=== PATIENT | female | born 1965 | race Caucasian/White ===

== ENCOUNTER → 2017-04-03 | Outpatient (CLI) | payer BC ==
[2016-02-22 15:14] VITALS: BP 154/83
[~2017-04-03] MED LIST: NS 100 ML IV 100 ML IV ONE
[2017-04-03 09:03] LABS: CREATININE 0.73 mg/dL (0.55-1.02)
--- NOTE | 2017-04-03 10:07 | CT ---
HISTORY: Epigastric pain. Study: CT abdomen and pelvis with contrast Comparison: CT abdomen and pelvis dated February 18, 2016. Technique: Multiple axial images of the abdomen and pelvis were obtained from the lung bases to the pubic symph ysis after/ without/ both prior to and after the administration of IV contrast. Dose reduction tech niques including Automated Exposure Control (AEC) and adjustment of mA and kV were utilized. Findings: Bibasilar scarring versus atelectasis. Otherwise, the visualized portions of the lung bases are unre markable. The liver, spleen, pancreas, kidneys, and adrenal glands are unremarkable in their CT xenia earance. The gallbladder is surgically absent. No significant mesenteric lymphadenopathy or strandi ng can be observed. No free fluid or free air is seen within the abdomen. The large and small bean l appear normal. The appendix appears normal. The uterus and ovaries are surgically absent. The urin whitney bladder is grossly unremarkable. Postsurgical versus posttraumatic changes of the left iliac cr est. Degenerative changes of the spine. The osseous structures otherwise appear normal for age. IMPRESSION: No CT evidence of acute abdominal/pelvic pathology. Reported By:
== END ==
LOC: RAD 08:30
PROVIDERS: ATTEND Internal Medicine
DX: K86.1 Other chronic pancreatitis (principal); R11.0 Nausea; R10.13 Epigastric pain; R19.5 Other fecal abnormalities
CPT/HCPCS: 36415; 74177; 82565; 84520; A4222

== ENCOUNTER 2017-04-26 06:31 | Day surgery (SDC) | payer BC ==
[2017-04-26] MEDS ORDERED: D5 LR 1000 ML 1,000 ML IV ONE (06:55)
[2017-04-26] MEDS ORDERED: DIPRIVAN VIAL 20 ML ONE (08:21)
[2017-04-26] MEDS ORDERED: XYLOCAINE 2 % (PLAIN) ONE (08:21)
[2017-04-26] MEDS ORDERED: DIPRIVAN VIAL 10 ML ONE (08:41)
[2017-04-26 09:11] VITALS: BP 118/60
== END 2017-04-26 09:15 | disposition home or self-care (01) ==
LOC: SURG1 06:31
PROVIDERS: ATTEND Internal Medicine Gastroenterology
PROC: 0DJD8ZZ Inspection of Lower Intestinal Tract, Via Natural or Artificial Opening Endoscopic (ICD-10-PCS; principal; 2017-04-26 07:30)
DX: R10.84 Generalized abdominal pain (principal); K92.2 Gastrointestinal hemorrhage, unspecified; K64.0 First degree hemorrhoids
CPT/HCPCS: A4217; J2001; J3490; J7120

== ENCOUNTER → 2017-09-11 | Outpatient (CLI) | payer BC ==
--- NOTE | 2017-09-12 08:30 | US ---
History: Right upper quadrant pain, previous cholecystectomy Study: Ultrasound right upper quadrant Findings: Ultrasound the right upper quadrant demonstrates surgical absence of the gallbladder. The c ommon bile duct measures 7 mm in diameter. Visualized liver parenchyma is homogeneous in echogenicity . Right kidney is normal in size with no mass or hydronephrosis. The head and proximal body region of the pancreas appear unremarkable. Impression: Previous cholecystectomy. Reported By:
== END ==
LOC: RAD 08:27
PROVIDERS: ATTEND Internal Medicine Gastroenterology
DX: R10.11 Right upper quadrant pain (principal)
CPT/HCPCS: 76705

== ENCOUNTER 2018-03-01 00:53 | Emergency (ER) | payer BC ==
[2018-03-01 01:03] VITALS: BP 140/71; BMI 28.3
[2018-03-01] MEDS ORDERED: KLONOPIN TAB 1 MG PO ONE (01:16)
[2018-03-01] MEDS ORDERED: XANAX PO ONE (01:20)
[2018-03-01] MEDS ORDERED: XANAX ONE (01:20)
--- NOTE | 2018-03-01 01:25 | DR.GENAD ---
HPI - PCP Primary Care Physician: sarah menjivar - Complaint/Symptoms Chief Complaint Doctors Comments: She states that she is worrying over if she had taken her analgesic tab. tonight or not. She denies c/p or sob. Chief Complaint:: pt states" I think i took an extra pain pill tonight and it scared me and now i'm having a panic attack. my mouth is all filled up with cotton and i get a hot feeling then a cold feeling" Self Treatment fo Chief Complaint: lortab 7.5/325 took 2 tonight - Nurses notes reviewed Nurses Notes Review: Yes - Source History Provided: Patient - Mode of Arrival Mode of Arrival: Ambulatory - Timing Onset of Chief Complaint: 02/28/18 PMH - PMH Past Medical History: Yes Past Medical History: Anxiety, Diabetes, Hypertension Past Surgical History: Yes Surgical History: , Cholecystectomy, Hysterectomy, Ortho Surgery, Tonsillectomy - Family History History of Family Medical Conditions: Yes Family Medical History: Hypertension - Social History Does any household member use tobacco: No Alcohol Use: None Do you use any recreational Drugs:: No Lives With: Family Lives Where: Home - infectious screening In the last 2 months have you had wt loss of >10#?: NO Have you had fever, night sweats or hemotysis?: No Have you traveled outside the country in the last 6 months?: No Isolation: Standard ROS - Review of Systems Constitutional: No Symptoms Reported Eyes: No Symptoms Reported ENTM: No Symptoms Reported Respiratoy: No Symptoms Reported Cardiovascular: No Symptoms Reported Gastrointestinal/Abdominal: No Symptoms Reported Genitourinary: No Symptoms Reported Neurological: No Symptoms Reported Musculoskeletal: No Symptoms Reported Integumentary: No Symptoms Reported Hematologic/Lymphatic: No Symptoms Reported Endocrine: No Symptoms Reported Psychiatric: Anxiety PE - Vital Signs Vitals: Temperature 98.5 F Pulse Rate 76 Respiratory Rate 18 Blood Pressure [Left Arm] 154/83 Blood Pressure [Right Arm] 142/69 Blood Pressure 140/71 O2 Sat by Pulse Oximetry 98 - General Limitations: No Limitations General Appearance: Alert, In No Apparent Distress, Anxious - Head Head Exam: Normal Inspection - Eyes Eye exam: Normal Appearance - ENT ENT Exam: Normal Exam - Neck Neck Exam: Normal Inspection, Trachea Midline - Chest Chest Inspection: Normal Inspection - Respiratory Respiratory Exam: Normal Lung Sounds Bilat - Cardiovascular Cardiovascular Exam: Regular Rate, Normal Heart Sounds, +S1, +S2 - Abdominal Exam Abdominal Exam: Normal Inspection, Normal Bowel Sounds, Soft - Extremities Extremities Exam: Other (Her RLE is in an immobilizer unit.) - Back Back Exam: Normal Inspection - Neurologic Neurological Exam: Alert, Oriented X3 - Psychiatric Psychiatric Exam: Anxious - Skin Skin Exam: Warm, Dry, Intact, Normal Color - Diagnosis Discharge Problem: Anxiety reaction - Discharge Plan Disposition: HOME, SELF-CARE Condition: Stable - Follow ups/Referrals Follow ups/Referrals: SARAH MENJIVAR [Primary Care Provider] - 3 days - Instructions Instructions: Living With Anxiety
== END 2018-03-01 01:37 | disposition home or self-care (01) ==
LOC: ER 00:53
DX: F41.1 Generalized anxiety disorder (principal)
CPT/HCPCS: 99282